=== PATIENT | male | born 1945 | race Caucasian/White ===

== ENCOUNTER 2017-04-25 16:06 | Inpatient (IN) | payer MEDICARE ==
[~2017-04-25] VITALS: Ht 167.6 cm; Wt 67.2 kg
[2017-04-25] MEDS ORDERED: METOPROLOL TARTRATE 1 MG/ML 5ML VIAL IV ONE ×2 (16:32→16:51)
[2017-04-25] MEDS ORDERED: SODIUM CHLORIDE 0.9% 250 ML IV ONE (16:33)
[2017-04-25] MEDS ORDERED: DEXAMETHASONE SOD PHOSPHATE 10MG/ML 1ML VIAL ONE (16:51)
[2017-04-25 16:54] LABS: BASOPHILS % (AUTO) 0.4 % (0.0-5.0); EOSINOPHILS % (AUTO) 3.1 % (0.0-8.0); HEMATOCRIT 48.7 % (42-54); LYMPHOCYTES % (AUTO) 12.2 % (21.0-51.0); MEAN CORPUSCULAR HEMOGLOBIN 34.5 pg (27.0-33.0); MEAN CORPUSCULAR HGB CONC 35.2 g/dL (32.0-36.0); MEAN CORPUSCULAR VOLUME 97.9 fL (79-99); MONOCYTES % (AUTO) 11.5 % (3.0-13.0); NEUTROPHILS % (AUTO) 72.8 % (40.0-77.0); NUCLEATED RED BLOOD CELLS 0.1 % (0.0-0.19); PLATELET COUNT (AUTO) 199 K/uL (130-400); RED BLOOD CELL COUNT(AUTO) 4.98 MIL/uL (4.50-6.20); RED CELL DISTRIBUTION WIDTH 12.6 % (11.0-15.5); WHITE BLOOD COUNT (AUTO) 8.9 K/uL (4.8-10.8)
[2017-04-25 16:59] LABS: CREATININE 1.1 mg/dL (0.5-1.5); POTASSIUM 4.4 mmol/L (3.5-5.1)
[2017-04-25 17:14] LABS: ALBUMIN 3.8 g/dL (3.5-5.0); CREATINE KINASE MB 1.4 ng/mL (0.5-3.6); TOTAL PROTEIN, SERUM 7.9 g/dL (6.0-8.3)
[2017-04-25 17:40] LABS: INR 0.95 (0.85-1.15); PARTIAL THROMBOPLASTIN TIME 25.2 SEC (26.3-35.5)
[2017-04-25] MEDS ORDERED: DIGOXIN 250 MCG/ML 2ML AMP ONE ×2 (18:19→19:26)
[2017-04-25] MEDS ORDERED: KETOROLAC TROMETHAMINE 15MG/ML ONE (18:21)
[2017-04-25 18:51] LABS: APPEARANCE,URINE CLEAR (CLEAR); BILIRUBIN,URINE Negative (NEGATIVE); COLOR,URINE Yellow (YELLOW); GLUCOSE, URINE (UA) Negative (NEGATIVE); KETONES,URINE Negative (NEGATIVE); LEUKOCYTE ESTERASE ,URINE Negative (NEGATIVE); NITRATE,URINE Negative (NEGATIVE); OCCULT BLOOD,URINE Small (NEGATIVE); PH,URINE 6.5 (5.0-8.0); PROTEIN,URINE POS 1+ (NEGATIVE)
[2017-04-25 18:58] LABS: BACTERIA,URINE Rare /HPF (None Seen); MUCUS,URINE Few LPF (None Seen); RBC,URINE 0-1 /HPF (0-1); SPERM,URINE Few /HPF (None Seen); SQUAMOUS EPITHELIAL CELL,UR 0-2 /HPF (0-2); WBC,URINE None Seen /HPF (0-1)
[2017-04-26] VITALS (8 sets, daily range): BP systolic 90–121; BP diastolic 54–66
[2017-04-26] MEDS ORDERED: ESMOLOL HCL 2500 MG/NACL 250 ML IV PRN (01:30)
[2017-04-26 02:07] LABS: CREATINE KINASE MB 1.9 ng/mL (0.5-3.6); CREATINE KINASE, TOTAL 56 U/L (21-232); MYOGLOBIN 69 ng/mL (10-92); TROPONIN I < 0.04 ng/mL (0.00-0.06)
[2017-04-26] MEDS ORDERED: ACETAMINOPHEN 325 MG TAB PO PRN (02:15)
[2017-04-26] MEDS ORDERED: POTASSIUM CHLORIDE 20MEQ/100ML 100 ML IV PRN (02:15)
[2017-04-26] MEDS ORDERED: ONDANSETRON HCL 4 MG/2 ML VIAL IVP PRN (02:15)
[2017-04-26] MEDS ORDERED: LACTULOSE 20 GM/30 ML UDCUP PO PRN (02:15)
[2017-04-26] MEDS ORDERED: POTASSIUM CHLORIDE 10% ELIXIR 20 MEQ/15 ML UDCUP PO PRN (02:15)
[2017-04-26] MEDS ORDERED: HYDRALAZINE HCL 20 MG/ML VIAL IV PRN (02:15)
[2017-04-26] MEDS ORDERED: LIDOCAINE HCL-MPF 1% 2ML VIAL IVP PRN (02:15)
[2017-04-26] MEDS ORDERED: POTASSIUM CHLORIDE 20 MEQ ERTAB PO PRN (02:15)
[2017-04-26] MEDS ORDERED: MORPHINE SULFATE 2 MG/ML 1ML SYG IVP PRN (02:15)
[2017-04-26] MEDS ORDERED: NITROGLYCERIN 0.4 MG SL TAB SL PRN (02:30)
[2017-04-26] MEDS ORDERED: LACTATED RINGERS 1000ML 1,000 ML IV SCH (02:45)
[2017-04-26] MEDS: MORPHINE SULFATE 2 MG/ML 1ML SYG IVP PRN (03:26)
[2017-04-26] MEDS: IPRATROPIUM/ALBUTEROL SULFATE 3 ML SOLUTION IH SCH ×3 (06:37→17:58)
[2017-04-26 07:49] LABS: HEMATOCRIT 43.9 % (42-54); MEAN CORPUSCULAR HEMOGLOBIN 33.9 pg (27.0-33.0); MEAN CORPUSCULAR HGB CONC 34.8 g/dL (32.0-36.0); MEAN CORPUSCULAR VOLUME 97.3 fL (79-99); PLATELET COUNT (AUTO) 167 K/uL (130-400); RED BLOOD CELL COUNT(AUTO) 4.51 MIL/uL (4.50-6.20); RED CELL DISTRIBUTION WIDTH 12.6 % (11.0-15.5); WHITE BLOOD COUNT (AUTO) 12.2 K/uL (4.8-10.8)
[2017-04-26 08:05] LABS: INR 0.97 (0.85-1.15); PARTIAL THROMBOPLASTIN TIME 24.8 SEC (26.3-35.5); PROTHROMBIN TIME 10.2 SEC (9.6-11.6)
[2017-04-26 08:15] LABS: CREATINE KINASE MB 1.9 ng/mL (0.5-3.6); TROPONIN I 0.04 ng/mL (0.00-0.06)
[2017-04-26 08:35] LABS: CREATININE 0.9 mg/dL (0.5-1.5); POTASSIUM 4.5 mmol/L (3.5-5.1); THYROID STIMULATING HORMONE 0.59 uIU/mL (0.36-3.74)
[2017-04-26] MEDS: ENOXAPARIN SODIUM 30 MG/0.3 ML SQ SCH ×2 (09:04→20:10)
[2017-04-26] MEDS: FAMOTIDINE 20MG TAB 20 MG TAB PO SCH ×2 (09:04→20:09)
[2017-04-26] MEDS: TRAMADOL HCL 50 MG TABLET PO PRN (13:23)
[2017-04-26] MEDS: METOPROLOL TARTRATE 25 MG TAB PO SCH (20:09)
[2017-04-26] MEDS ORDERED: ZOLPIDEM TARTRATE 5 MG TAB PO SCH (21:00)
[2017-04-26] MEDS ORDERED: ZOLPIDEM TARTRATE 5 MG TAB PO PRN (21:00)
[2017-04-27] MEDS: IPRATROPIUM/ALBUTEROL SULFATE 3 ML SOLUTION IH SCH ×5 (00:22→23:36)
[2017-04-27] MEDS: MORPHINE SULFATE 2 MG/ML 1ML SYG IVP PRN ×2 (02:28→20:03)
[2017-04-27 03:25] VITALS: BP 102/65
[2017-04-27 04:40] LABS: BASOPHILS % (AUTO) 0.2 % (0.0-5.0); EOSINOPHILS % (AUTO) 1.3 % (0.0-8.0); HEMATOCRIT 38.2 % (42-54); LYMPHOCYTES % (AUTO) 16.2 % (21.0-51.0); MEAN CORPUSCULAR HEMOGLOBIN 35.6 pg (27.0-33.0); MEAN CORPUSCULAR HGB CONC 36.7 g/dL (32.0-36.0); MEAN CORPUSCULAR VOLUME 96.9 fL (79-99); NEUTROPHILS % (AUTO) 71.3 % (40.0-77.0); PLATELET COUNT (AUTO) 149 K/uL (130-400); RED BLOOD CELL COUNT(AUTO) 3.94 MIL/uL (4.50-6.20); RED CELL DISTRIBUTION WIDTH 12.4 % (11.0-15.5)
[2017-04-27 04:43] LABS: CREATININE 0.9 mg/dL (0.5-1.5); POTASSIUM 3.9 mmol/L (3.5-5.1)
[2017-04-27 07:40] VITALS: BP 100/56
[2017-04-27] MEDS: ASPIRIN 81MG TAB.CHEW PO SCH (09:02)
[2017-04-27] MEDS: FAMOTIDINE 20MG TAB 20 MG TAB PO SCH ×2 (09:02→20:02)
[2017-04-27] MEDS: METOPROLOL TARTRATE 25 MG TAB PO SCH ×2 (09:03→20:02)
[2017-04-27] MEDS: ENOXAPARIN SODIUM 30 MG/0.3 ML SQ SCH ×2 (09:03→20:03)
[2017-04-27] MEDS: TRAMADOL HCL 50 MG TABLET PO PRN ×2 (09:15→14:20)
[2017-04-27] MEDS: KETOROLAC TROMETHAMINE 15MG/ML IV PRN ×2 (10:46→17:40)
[2017-04-27 11:20] VITALS: BP 106/64
[2017-04-27] MEDS: GABAPENTIN 100 MG CAPSULE PO SCH ×2 (14:04→20:02)
[2017-04-27 16:22] VITALS: BP 101/73
[2017-04-27 19:42] VITALS: BP 108/65
[2017-04-27 23:33] VITALS: BP 102/69
[2017-04-28] MEDS: MORPHINE SULFATE 2 MG/ML 1ML SYG IVP PRN (02:26)
[2017-04-28 03:05] VITALS: BP 122/73
[2017-04-28 04:49] LABS: EOSINOPHILS % (AUTO) 5.3 % (0.0-8.0); HEMATOCRIT 39.3 % (42-54); LYMPHOCYTES % (AUTO) 40.4 % (21.0-51.0); MEAN CORPUSCULAR HEMOGLOBIN 34.1 pg (27.0-33.0); MEAN CORPUSCULAR HGB CONC 34.8 g/dL (32.0-36.0); MEAN CORPUSCULAR VOLUME 97.9 fL (79-99); MONOCYTES % (AUTO) 43.8 % (3.0-13.0); NEUTROPHILS % (AUTO) 10.5 % (40.0-77.0); PLATELET COUNT (AUTO) 134 K/uL (130-400); RED BLOOD CELL COUNT(AUTO) 4.02 MIL/uL (4.50-6.20); RED CELL DISTRIBUTION WIDTH 12.7 % (11.0-15.5)
[2017-04-28 05:06] LABS: CREATININE 0.9 mg/dL (0.5-1.5); POTASSIUM 4.2 mmol/L (3.5-5.1)
[2017-04-28] MEDS: IPRATROPIUM/ALBUTEROL SULFATE 3 ML SOLUTION IH SCH ×2 (06:06→14:29)
[2017-04-28 08:11] VITALS: BP 120/69
[2017-04-28] MEDS: ASPIRIN 81MG TAB.CHEW PO SCH (09:25)
[2017-04-28] MEDS: ENOXAPARIN SODIUM 30 MG/0.3 ML SQ SCH (09:25)
[2017-04-28] MEDS: GABAPENTIN 100 MG CAPSULE PO SCH ×2 (09:26→14:00)
[2017-04-28] MEDS: TRAMADOL HCL 50 MG TABLET PO PRN ×2 (09:26→17:19)
[2017-04-28] MEDS: METOPROLOL TARTRATE 25 MG TAB PO SCH (09:26)
[2017-04-28] MEDS: FAMOTIDINE 20MG TAB 20 MG TAB PO SCH (09:26)
[2017-04-28 11:51] VITALS: BP 119/75
[2017-04-28] MEDS: KETOROLAC TROMETHAMINE 15MG/ML IV PRN (12:41)
[2017-04-28 16:00] VITALS: BP 113/75
[2017-05-10] MEDS ORDERED: LACTULOSE 20 GM/30 ML UDCUP PO PRN (02:30)
== END 2017-04-28 18:40 | DRG 552 ==
LOC: EDH 16:06 → EDHIP 16:07 → OBSVTOIN 21:50 → 2AH 04-26 00:30
PROVIDERS: ADMIT Family Medicine; ATTEND Family Medicine
DX: M51.16 Intervertebral disc disorders with radiculopathy, lumbar region (principal); I48.91 Unspecified atrial fibrillation; I71.2 Thoracic aortic aneurysm, without rupture; G89.29 Other chronic pain; I71.4 Abdominal aortic aneurysm, without rupture; M46.90 Unspecified inflammatory spondylopathy, site unspecified; M48.061 Spinal stenosis, lumbar region without neurogenic claudication; I25.10 Atherosclerotic heart disease of native coronary artery without angina pectoris; M51.17 Intervertebral disc disorders with radiculopathy, lumbosacral region; Z79.82 Long term (current) use of aspirin; Z86.79 Personal history of other diseases of the circulatory system; Z85.72 Personal history of non-Hodgkin lymphomas
CPT/HCPCS: 36415; 71045; 80048; 80053; 81001; 82550; 82553; 83735; 83874; 84443; 84484; 85025; 85027; 85610; 85651; 85730; 93005; 93306; 94640; 99291; J1100; J1160; J1650; J1885; J3490; J7030; J7120